=== PATIENT | female | born 2000 | race Caucasian/White ===

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

== ENCOUNTER 2020-05-06 15:57 | Emergency (ER) | payer OTHER ==
[~2020-05-06] VITALS: Ht 162.6 cm; Wt 60.8 kg
== END 2020-05-06 19:12 | disposition home or self-care (01) ==
LOC: ED 15:57
DX: R31.0 Gross hematuria (principal); K80.80 Other cholelithiasis without obstruction; R35.0 Frequency of micturition; J45.909 Unspecified asthma, uncomplicated
CPT/HCPCS: 76705; 80048; 81001; 84703; 85025; 99284-25